=== PATIENT | male | born 1980 | race Caucasian/White ===

== ENCOUNTER 2020-10-13 13:21 | Emergency (ER) | payer SELFPAY ==
[~2020-10-13] VITALS: Ht 170.2 cm; Wt 75.0 kg
[2020-10-13] MEDS ORDERED: ACETAMINOPHEN 325MG TABLET PO ONE (15:15)
[2020-10-13] MEDS ORDERED: ACET-2708 MT (16:25)
[2020-10-13 16:36] VITALS: BP 121/80
== END 2020-10-13 16:38 | disposition home or self-care (01) ==
LOC: ER 13:32
DX: M25.521 Pain in right elbow (principal); Z88.6 Allergy status to analgesic agent
CPT/HCPCS: 73080; 99284